=== PATIENT | male | born 1970 | race Two or more races ===

== ENCOUNTER 2024-11-13 08:20 | Emergency (ER) | payer OTHER ==
[~2024-11-13] VITALS: Ht 177.8 cm; Wt 95.3 kg
[2024-11-13] MEDS ORDERED: GABAPENTIN400 MG PO (08:42)
[2024-11-13] MEDS ORDERED: LIPITOR40 MG (08:42)
[2024-11-13] MEDS ORDERED: AMBIEN5 MG (08:43)
== END 2024-11-13 11:12 | disposition home or self-care (01) ==
LOC: ER 08:21
DX: R10.2 Pelvic and perineal pain (principal); Z88.6 Allergy status to analgesic agent